=== PATIENT | female | born 1970 | race Two or more races ===

== ENCOUNTER 2016-12-31 15:39 | Emergency (ER) | payer OTHER, MEDICAID ==
[~2016-12-31] VITALS: Ht 167.6 cm; Wt 99.8 kg
[2016-12-31 15:49] VITALS: BP 123/85
[2016-12-31] MEDS ORDERED: HYDR1CAP27 (15:53)
[2016-12-31] MEDS ORDERED: LUBI8CAP4 (15:53)
[2016-12-31] MEDS ORDERED: LEVO75TA6 (15:53)
[2016-12-31] MEDS ORDERED: LEVO100T8 (15:53)
[2016-12-31] MEDS ORDERED: SERT-160 (15:53)
[2016-12-31] MEDS ORDERED: ALPR (15:53)
[2016-12-31] MEDS ORDERED: HALO10TA18 (15:53)
[2016-12-31] MEDS ORDERED: HYDR50CA2 (15:53)
[2016-12-31] MEDS ORDERED: ATOR20TA50 (15:53)
[2016-12-31] MEDS ORDERED: CYCL1TAB18 (15:53)
[2016-12-31] MEDS ORDERED: BENZ1TAB2 (15:53)
[2016-12-31] MEDS ORDERED: [UNRECOGNIZED DRUG - CODE] (15:53)
[2016-12-31] MEDS ORDERED: GABA300C8 (15:53)
== END 2016-12-31 20:45 | disposition left against medical advice (07) ==
LOC: EDUNIT# 15:39 → ER 15:43
DX: R53.1 Weakness (principal); F29 Unspecified psychosis not due to a substance or known physiological condition; Z53.21 Procedure and treatment not carried out due to patient leaving prior to being seen by health care provider

== ENCOUNTER 2017-11-22 07:20 | Emergency (ER) | payer OTHER, MEDICAID ==
[~2017-11-22] VITALS: Ht 167.6 cm; Wt 99.8 kg
[~2017-11-22 07:20] MED LIST: ALPR; ATOR20TA50; BENZ1TAB2; CYCL1TAB18; GABA300C10; HALO10TA18; HYDR1CAP27; HYDR50CA2; LEVO100T8; LEVO75TA6; LUBI8CAP4; SERT-160; [UNRECOGNIZED DRUG - CODE]
[2017-11-22 08:48] LABS: Eosinophils # (auto) 0.1 uL; Eosinophils % (auto) 1.5 % (0.0-7.0); Hemoglobin 10.9 g/dL (12.2-16.2); Lymphocytes # (auto) 2.3 uL; Neutrophils # (auto) 5.1 uL; Red Cell Distribution Width 17.3 % (11.8-14.3)
[2017-11-22 08:50] LABS: Basophils # (auto) 0.1 uL; Basophils % (auto) 0.6 % (0.0-2.0); Hematocrit 34.9 % (36.0-46.0); Lymphocytes % (auto) 29.2 % (10.0-50.0); Mean Corpuscular Hemoglobin 22.6 pg (28.0-32.0); Mean Corpuscular Hgb Conc. 31.3 g/dL (32.0-36.0); Mean Corpuscular Volume 72.2 fL (80.0-100.0); Monocytes # (auto) 0.4 uL; Monocytes % (auto) 5.5 % (0.0-12.0); Neutrophils % (auto) 63.2 % (37.0-80.0); Nucleated Red Blood Cells % 0.1 %; Platelet Count (auto) 372 10^3/uL (140-450); Red Blood Cells 4.84 10^6/uL (4.0-5.20)
[2017-11-22 09:11] LABS: Alanine Aminotransferase 21 U/L (13-56); Albumin 3.8 g/dL (3.4-5.0); Anion Gap 5 (5-15); Aspartate Aminotransferase 10 U/L (15-37); BUN/Creatinine Ratio 19.2; Blood Urea Nitrogen 14 mg/dL (7-18); Calcium 9.1 mg/dL (8.5-10.1); Carbon Dioxide 28 mmol/L (21-32); Chloride 106 mmol/L (98-107); GFR African American 109 mL/min; GFR Non-African American 90 mL/min; Glucose 124 mg/dL (74-106); Magnesium 2.3 mg/dL (1.6-2.6); Potassium 4.7 mmol/L (3.5-5.1); Sodium 139 mmol/L (136-145)
[2017-11-22 09:20] LABS: Alkaline Phosphatase 132 U/L (45-117); Bilirubin, Total 0.2 mg/dL (0.2-1.0); Total Protein 7.7 g/dL (6.4-8.2)
[2017-11-22 11:48] VITALS: BP 122/82
[2017-11-22 12:37] LABS: Acetaminophen < 2.0 ug/mL (10-30); Salicylate < 1.7 mg/dL (2.8-20.0)
== END 2017-11-22 13:15 | disposition home or self-care (01) ==
LOC: ER 07:20 → EDBD 07:20 → ER 13:15
DX: F20.9 Schizophrenia, unspecified (principal); E07.89 Other specified disorders of thyroid; E78.5 Hyperlipidemia, unspecified; Z79.899 Other long term (current) drug therapy
CPT/HCPCS: 36415; 80053; 80320; 80329; 83735; 84484; 85025; 93005; 94761

== ENCOUNTER 2018-10-23 20:31 | Emergency (ER) | payer OTHER, MEDICAID ==
[~2018-10-23] VITALS: Ht 160 cm; Wt 97.5 kg
[~2018-10-23 20:31] MED LIST changes: -ALPR; +ALPR0.255
[2018-10-23 20:59] VITALS: BP 105/72
== END 2018-10-24 07:45 | disposition left against medical advice (07) ==
LOC: EDSEX 20:31 → EDBD 20:31 → ER 20:36
DX: R45.851 Suicidal ideations (principal); F41.9 Anxiety disorder, unspecified; Z53.21 Procedure and treatment not carried out due to patient leaving prior to being seen by health care provider

== ENCOUNTER 2018-11-10 02:34 | Emergency (ER) | payer OTHER, MEDICAID ==
[~2018-11-10] VITALS: Ht 167.6 cm; Wt 98.0 kg
[2018-11-10 02:57] VITALS: BP 144/85
== END 2018-11-10 08:25 | disposition left against medical advice (07) ==
LOC: EDBD 02:34 → ER 02:34
DX: F41.9 Anxiety disorder, unspecified (principal); Z53.21 Procedure and treatment not carried out due to patient leaving prior to being seen by health care provider